=== PATIENT | female | born 2000 | race Caucasian/White ===

== ENCOUNTER 2021-02-09 07:56 | Inpatient (IN) ==
--- NOTE | 2021-02-03 13:04 | History & Physical Report ---
Date of Service February 03, 2021 Assessment & Plan (1) Encounter for supervision of normal intrauterine in primigravida, antepartum: Plan: Plan for repeat section, consent reviewed in detail. Questions answered. Allergic to iodine - will plan for chloraprep for abdomen. Will need alternative for restrepo catheter placement. History of Present Illness Chief Complaint: scheduled section Primary Care Provider: Lazaro Osorio 20yo with EDC 02/14/21 Plan for scheduled primary section due to breech presentation. complicated by: Flu shot 12/26/20 BREECH PRESENTATION C/S SCHEDULED FOR 02/[address] GLASS AND DR. VELAZQUEZ ASSIST Allergies Allergy/AdvReac Type Severity Reaction Status Date / Time iodine Allergy Hives Verified 02/03/21 12:26 Home Medications Medication Instructions Recorded Confirmed Type prenat.vits,mago,msb-uodx-qgtgg 1 tab PO DAILY 07/02/20 02/03/21 History ondansetron HCl 4 mg tablet 4 mg PO Q6H PRN #20 tab 08/06/20 02/03/21 Rx (Zofran) breast pump #1 ea 12/25/20 02/03/21 Rx breast pump #1 ea 12/26/20 02/03/21 Rx Patient History Medical History History of chicken pox Nexplanon removal Surgical History H/O LEEP H/O wisdom tooth extraction Family History Aunt Clotting disorder Father Pulmonary embolism Denies family history of Ovarian cancer Prostate cancer Breast cancer Colorectal cancer Social History Smoking Status: Never smoker marital status: marital status details: Jet Vallecillo (23) [phone] Current Living Situation: Spouse Current Living Situation Comment: Lives with spouse. 1 dog. current occupational status: employed current occupation: EMT Review of Systems All systems reviewed & are unremarkable except as noted in HPI & below Physical Exam Constitutional: WD/WN, vitals as above Respiratory: normal respiratory effort, lungs clear to auscultation no respiratory distress Cardiovascular: Rate/Rhythm: regular rate and regular rhythm Gastrointestinal (Abdomen): Inspection/Auscultation: abdomen normal to inspection Percussion/Palpation: abdomen soft; abdomen nontender Gravid. No s/s chorio or abruption. Skin: no rashes, warm and dry Psychiatric: A+Ox3, euthymic affect Coding Level of Care Code None Diagnoses Encounter for supervision of normal intrauterine in primigravida, antepartum Z34.00
--- NOTE | 2021-02-04 12:56 | Anesthesiology Consultation ---
Date of Service February 04, 2021 Assessment & Plan (1) Encounter for pre-operative examination: COVID screening: Per assessment on 02/04: Travel screen negative, no known COVID-19 positive contacts or current COVID-19 related symptoms. Surgeon arranging preop COVID testing. Awaiting results. Chart Review Chart Review: area operations manager initiated History Surgery Operation Date: 02/09/21 08:50 Proposed Procedures p Section ( Delivery of Baby Through Abdominal Incision) - Mirna Heredia DO Height/Weight Height: 5 ft 4 in Weight: 89.358 kg Allergies Allergy/AdvReac Type Severity Reaction Status Date / Time iodine Allergy Intermediate Hives Verified 02/04/21 11:00 Medications Home Medications Medication Instructions Recorded Confirmed Last Taken prenat.vits,mago,nek-curr-odijj 1 tab PO HS 07/02/20 02/04/21 Unknown ondansetron HCl 4 mg tablet 4 mg PO Q6H PRN #20 tab 08/06/20 02/04/21 Unknown (Zofran) breast pump #1 ea 12/25/20 02/03/21 Unknown breast pump #1 ea 12/26/20 02/03/21 Unknown Past Medical History Medical History (Updated 02/04/21 @ 12:55 by Cheryl Fox) History of COVID-19 Dx 06/2020 > symptoms at time of: headache, loss sense of smell > resolved Migraine PCOS (polycystic ovarian syndrome) Past Family History Family History Aunt Clotting disorder Father Pulmonary embolism Other No family history of adverse response to anesthesia Denies family history of Ovarian cancer Prostate cancer Breast cancer Colorectal cancer Past Surgical History Surgical History H/O LEEP H/O wisdom tooth extraction History of gynecological procedure removal of nexplanon Social History Smoking Status: Never smoker Do You Dip or Chew Tobacco: No Hx Alcohol Use: No Hx Substance Use: No substance use type: does not use Lab Results Anesthesia Preop Results Results Anesthesia Widget: Hgb 12.6 g/dL (12.0-16.0) 12/12/20 Hct 38.4 % (37-47) 12/12/20
[~2021-02-09 07:56] MED LIST: CITRIC ACID/SODIUM CITRATE 15 ML UDC PO SCH; LACTATED RINGER'S 1,000 ML IV SCH; ceFAZolin 2,000 MG in SYRINGE 0 ML IV SCH
[2021-02-09] MEDS ORDERED: LACTATED RINGER'S 1,000 ML IV SCH ×2 (08:00→12:51)
[2021-02-09 08:22] LABS: Basophils # (auto) 0.03 K/uL (0-0.2); Basophils % (auto) 0.3 %; Eosinophils # (auto) 0.09 K/uL (0-0.5); Eosinophils % (auto) 0.8 %; Hemoglobin 12.6 g/dL (12.0-16.0); Immature Granulocytes # (auto) 0.17 K/uL (0.00-0.02); Immature Granulocytes % (auto) 1.6 %; Lymphocytes # (auto) 2.01 K/uL (1.2-3.4); Lymphocytes % (auto) 18.5 %; Mean Corpuscular Hgb Conc 34.1 g/dL (32-36); Mean Corpuscular Volume 88.1 fL (80-100); Mean Platelet Volume 11.3 fL (7.4-10.4); Monocytes # (auto) 1.19 K/uL (0.11-0.59); Monocytes % (auto) 10.9 %; Neutrophils % (auto) 67.9 %; Platelet Count 159 K/uL (130-400); RDW Coefficient of Variation 13.1 % (11.5-14.5); RDW Standard Deviation 42.3 fL (36.4-46.3); White Blood Count 10.89 K/uL (4.8-10.8)
[2021-02-09] MEDS ORDERED: ONDANSETRON INJ 2 MG/ML 2 ML VIAL ONE (08:22)
[2021-02-09] MEDS ORDERED: MoRPHine SULFATE PF 1 MG/ML 10 ML AMP/VIAL ONE (08:22)
[2021-02-09] MEDS ORDERED: fentaNYL citrate 100 MCG/2 ML VIAL ONE (08:22)
[2021-02-09] MEDS ORDERED: OXYTOCIN 10 UNITS/ML VIAL ONE (08:22)
--- NOTE | 2021-02-09 10:09 | History & Physical Bridge Note ---
Date of Service February 09, 2021 History & Physical Bridge Note I have examined the patient, reviewed the History & Physical and in the interval since the performance of the History & Physical I have noted the following changes of clinical significance: no changes noted
[2021-02-09] MEDS ORDERED: NALBUPHINE HCL INJ 10 MG/ML AMP IV PRN (10:51)
[2021-02-09] MEDS ORDERED: ePHEDrine sulfate 50 MG/ML AMP IV PRN (10:51)
[2021-02-09] MEDS ORDERED: NALOXONE HCL 1 MG in SODIUM CHLORIDE 0.9% 1000ML 1,000 ML IV PRN (10:51)
[2021-02-09] MEDS ORDERED: MoRPHine SULFATE PF 1 MG/ML 10 ML AMP/VIAL INT SPINAL ONE (10:51)
[2021-02-09] MEDS ORDERED: NALOXONE HCL 0.08 MG in SYRINGE 1.8 ML IV PRN (10:51)
[2021-02-09] MEDS ORDERED: PROMETHAZINE HCL 25 MG in SODIUM CHLORIDE 0.9% 50 ML IV PRN (10:51)
[2021-02-09] MEDS ORDERED: diphenhydrAMINE 50 MG/ML VIAL IV PRN (10:51)
[2021-02-09] MEDS ORDERED: ONDANSETRON INJ 2 MG/ML 2 ML VIAL IV PRN (10:51)
[2021-02-09] MEDS ORDERED: NALOXONE HCL 0.4 MG/1 ML VIAL/CARP IV PRN (10:51)
[2021-02-09] MEDS ORDERED: HYDROmorphone INJ 0.5 MG/0.5 ML SYR IV PRN (10:51)
[2021-02-09] MEDS ORDERED: LACTATED RINGER'S 500 ML IV PRN (10:51)
[2021-02-09] MEDS ORDERED: SODIUM CHLORIDE 0.9% 1000ML 1,000 ML IV SCH (11:00)
[2021-02-09] MEDS ORDERED: NO NARCOTICS OR SEDATIVES SCH (11:00)
[2021-02-09] MEDS ORDERED: DC INTRASPINAL MORPHINE SCH (11:00)
--- NOTE | 2021-02-09 11:34 | Operative Report ---
PG Post Operative Report Pre & Post Diagnosis Operation Date: 02/09/21 09:50 Pre-Op Diagnosis: Breech presentation Post-Op Diagnosis: Same I identified the patient and participated in the time-out.: Yes Procedure Operation Date: 02/09/21 09:50 Actual Procedures p Primary Low Transverse Section in LD OR#3; primary lower uterine transverse section for the of a life male ; removal of Left para-tubal cyst - Mirna Heredia DO Surgeon Mirna Heredia DO Warehouse Delivery Manager Aryan Ellis MD Estimated Blood Loss 600 Findings Consistent with Post-Op Diagnosis Viable male , Apgars 8/9. Weight pending - please see nursery records. Normal appearing uterus, tubes, ovaries - except small left paratubal cyst. Specimens Placenta, cord blood, cord gas. Drains restrepo, clear yellow Anesthesia Type Spinal Complications none Disposition Accompanied Patient To Recovery: No Indications 20yo @ 39 2/7, primary low transverse section for breech presentation. Description of Procedure The patient was seen in her labor and delivery room, risks benefits and alternatives to surgery were reviewed. Informed consent obtained in office. Questions were answered. She was taken to the operating room, spinal anesthesia was administered. She was then prepared and draped in the usual sterile fashion in the supine position with a leftward tilt. Timeout was confirmed. A Pfannenstiel skin incision was made with a scalpel, and carried through to the underlying layer of fascia. Fascia was nicked at midline, and this incision was extended bilaterally. The superior aspect of the fascial incision was grasped with Mine clamps x2, elevated off the underlying rectus abdominis muscles, and dissected sharply and bluntly. In similar fashion, the inferior aspect of the fascial incision was dissected. The rectus abdominis muscles were , and the peritoneum was entered bluntly digitally. This was extended bilaterally. The bladder flap was taken down carefully using Metzenbaum scissors. Using a new scalpel, a low transverse uterine incision was created. Clear amniotic fluid noted. The was delivered from a lalita breech presentation. The buttocks delivered, followed by bilateral legs, swept medially. Torso delivered, bilateral arms swept medially for delivery, then head delivered easily. No nuchal cord. Spontaneous cry on the field. The cord was doubly clamped and cut, and the infant was handed off to the waiting wood preparation supervisor. A segment was retained for cord gases. Cord blood was obtained. The placenta was delivered spontaneously intact. The uterus was exteriorized, and cleared of all clots and debris. The hysterotomy incision was reapproximated using 0 Vicryl in a running locked stitch. A second layer of the same suture was used to imbricate the incision. Posterior uterus was evaluated and normal. There was a small simple-appearing left paratubal cyst, transected from mesosalpinx with bovie cautery, sent to path for evaluation. The uterus was returned to the abdomen, and gutters were cleared of clots and d ebris. Figure of eight sutures were used for bleeding spots on the hysterotomy incision, which obtained hemostasis. Excellent hemostasis was observed. The fascial incision was reapproximated using 0 Vicryl in a running stitch. The subcutaneous tissue was irrigated, and reapproximated using 2-0 plain gut in a running stitch. The skin was reapproximated using 4-0 Vicryl in a running subcuticular stitch. Steri-Strips and a bandage were applied. The patient tolerated the procedure well, and will be taken to the recovery area in stable and good condition. Sponge, needle, instrument counts correct x 2. I attest to the content of the Intraoperative Record and any orders documented therein. Any exceptions are noted below. OB Procedure Charges 69964
[2021-02-09 11:56] LABS: Base Excess Cord Arterial Bld 0.8 mEq/L (-9-1.8); CO2 Cord Arterial Blood 58 mmHg (39.1-73.5); HCO3 Cord Arterial Blood 28 mmol/L (19.7-28.5); PO2 Cord Arterial Blood 27 mmHg (4.1-31.7); pH Cord Arterial Blood 7.31 (7.1-7.38)
[2021-02-09 11:57] LABS: Oxygen Sat Cord Arterial Blood < 60.0 % (<60)
[2021-02-09 12:00] LABS: Base Excess Cord Venous Blood -0.9 mEq/L (-7.7-1.9); Cord Venous Blood HCO3 23 mmol/L (18.4-26.8); Cord Venous Blood PCO2 34 mmHg (30.4-57.2); Cord Venous Blood PO2 29 mmHg (14.1-43.3); Cord Venous Blood pH 7.44 (7.20-7.44); O2 Saturation Cord Venous Bld 71.2 % (<68)
--- NOTE | 2021-02-09 12:17 | Anesthesiology Progress Note ---
Date of Service February 09, 2021 Anesthesia Post Procedure Vital Signs Vital Signs: Temp Pulse Resp BP Pulse Ox 02/09/21 12:07 68 110/69 02/09/21 11:57 87 111/74 02/09/21 11:55 20 02/09/21 11:50 79 112/73 02/09/21 11:45 97.7 F 02/09/21 11:43 74 100 02/09/21 11:38 72 99 02/09/21 11:34 75 103/66 02/09/21 11:33 80 96 02/09/21 08:52 97.9 F 02/09/21 08:12 83 115/73 Transfer of Care Handoff Completed per policy Notes Mental Status: alert / awake / arousable and participated in evaluation Patient Amnestic to Procedure: Yes Nausea / Vomiting: adequately controlled Pain: adequately controlled Airway Patency, RR, SpO2: stable & adequate BP & HR: stable & adequate Hydration State: stable & adequate Neuraxial Anesthesia: was administered and sensory block is resolving Anesthetic Complications: no major complications apparent and Pt Satisfied with anesthetic care
[2021-02-09] MEDS ORDERED: BENZOCAINE 20% AER SPR 82.5 GM CAN EXT PRN (12:51)
[2021-02-09] MEDS ORDERED: MAGNESIUM HYDROXIDE SUSP 30 ML UDC PO PRN (12:51)
[2021-02-09] MEDS ORDERED: DIPHTHERIA/TETANUS/PERTUSSIS 0.5 ML SYR/VIAL IM ONE (12:51)
[2021-02-09] MEDS ORDERED: SENNA 8.6 MG TAB PO PRN (12:51)
[2021-02-09] MEDS ORDERED: SUPERCREAM 0.870% 15 GM JAR EXT PRN (12:51)
[2021-02-09] MEDS ORDERED: HYDROCORTISONE ACETATE 25 MG SUPP PR PRN (12:51)
[2021-02-09] MEDS: SIMETHICONE 80 MG CHEW PO SCH ×3 (14:55→20:02)
[2021-02-09] MEDS: OXYTOCIN 30 UNITS in LACTATED RINGER'S 1,000 ML IV SCH ×2 (15:04→23:25)
[2021-02-09] MEDS ORDERED: KETOROLAC 30 MG/ML VIAL IV PRN (17:46)
[2021-02-09] MEDS ORDERED: KETOROLAC 30 MG/ML VIAL ONE (17:54)
[2021-02-09] MEDS: DOCUSATE SODIUM 100 MG CAP PO SCH (20:02)
[2021-02-10] MEDS ORDERED: diphenhydrAMINE 50 MG/ML VIAL IV PRN (04:52)
[2021-02-10] MEDS ORDERED: PROMETHAZINE HCL 25 MG in SODIUM CHLORIDE 0.9% 50 ML IV PRN (04:52)
[2021-02-10] MEDS ORDERED: KETOROLAC 30 MG/ML VIAL IV PRN (04:52)
[2021-02-10] MEDS ORDERED: diphenhydrAMINE Capsule 25 MG CAP PO PRN (04:52)
[2021-02-10] MEDS ORDERED: ONDANSETRON INJ 2 MG/ML 2 ML VIAL IV PRN (04:52)
[2021-02-10] MEDS: oxyCODONE/ACETAMINOPHEN 5mg/325mg TAB PO PRN ×4 (05:02→21:01)
[2021-02-10] MEDS: IBUPROFEN 600 MG TAB PO PRN ×4 (05:02→21:02)
--- NOTE | 2021-02-10 06:10 | Obstetrical Progress Note ---
Date of Service <Dontae Mendoza DO - Last Filed: 02/10/21 06:55> February 10, 2021 Assessment & Plan <Dontae Mendoza DO - Last Filed: 02/10/21 06:55> (1) Encounter for care and examination after delivery: 20 yo post op day 1 from , doing well. -Continue routine post care. - vital signs reviewed and WNL. (Tmax 36.8) -Blood type A+, GBS -, Rubella Immune -Encourage ambulation, monitor and control pain with Motrin, tylenol PRN, resume regular diet, monitor lochia. -encourage breast feeding -hemoglobin 12.6 <Yesy Ellis MD, FACOG - Last Filed: 02/10/21 07:06> (1) Encounter for care and examination after delivery: Subjective <Dontae Mendoza DO - Last Filed: 02/10/21 06:55> Ambulation: ambulating normally Voiding: no voiding problems Passing Gas:: Yes Diet Tolerance:: regular diet Lochia:: Small Feeding Type:: breast feeding Current Pain Level(1-10): 0 Review of Systems Denies fever, chills, sweats Denies shortness of breath, difficulty breathing, chest pain, palpitations, chest pressure. Denies breast pain. Denies dysuria. Denies headache or changes in vision Physical Exam <Dontae Mendoza DO - Last Filed: 02/10/21 06:55> General: Alert, oriented. No acute distress. Cardiac: Regular rate and rhythm, no murmurs/rubs/gallops. Respiratory: Clear to auscultation bilaterally a/p, no wheezes/rales/rhonchi. No increased work of breathing. Symmetrical chest rise. No respiratory distress. Abdomen: Soft, nontender, nondistended. Bowel sounds present. Uterus: Uterine fundus firm, palpable 2 cm below umbilicus. Surgical scar clean and healing well. Lower Extremities: No lower extremity edema or swelling. No deep calf pain. Dada's negative bilaterally Results & Data ([facility]) <Dontae Mendoza DO - Last Filed: 02/10/21 06:55> Vital Signs (Past 12 Hours) Vital Signs Temp Pulse Resp BP Pulse Ox 02/10/21 04:50 36.7 C 83 18 100/63 94 02/10/21 04:45 18 94 02/10/21 04:00 18 95 02/10/21 03:00 18 94 02/10/21 02:00 18 94 02/10/21 01:00 18 95 02/10/21 00:10 16 94 02/09/21 23:25 36.7 C 76 18 104/65 94 02/09/21 23:00 18 94 02/09/21 22:00 18 95 02/09/21 21:00 18 96 02/09/21 20:00 36.8 C 92 H 18 102/63 95 02/09/21 18:56 20 97 <Yesy Ellis MD, FACOG - Last Filed: 02/10/21 07:06> Co-Signing Physician Notes Resident Physician Supervision Note: I was present with Dr. Mendoza during the history and exam. I discussed the case with the resident and agree with the findings and plan as documented in the note. Any exceptions or clarifications are listed here: doing well, lety po, +flatus, no pain issues. no cp/sob. ff 2 down nt, incision c/d/i with steris. ext nt calves. pod#1 s/p primary c/s. doing well routine care. hgb pending. Documented By: Yesy Ellis MD, FACOG Resident Activity Tracking <Dontae Mendoza DO - Last Filed: 02/10/21 06:55> Resident Involvement: Resident Care Provided Care Provided: OB Delivery
[2021-02-10 07:59] LABS: Basophils # (auto) 0.01 K/uL (0-0.2); Basophils % (auto) 0.1 %; Eosinophils # (auto) 0.05 K/uL (0-0.5); Eosinophils % (auto) 0.3 %; Hematocrit (blood only) 32.9 % (37-47); Hemoglobin 10.8 g/dL (12.0-16.0); Immature Granulocytes # (auto) 0.13 K/uL (0.00-0.02); Immature Granulocytes % (auto) 0.9 %; Lymphocytes % (auto) 18.9 %; Mean Corpuscular Hgb Conc 32.8 g/dL (32-36); Mean Corpuscular Volume 88.2 fL (80-100); Mean Platelet Volume 11.3 fL (7.4-10.4); Monocytes # (auto) 1.74 K/uL (0.11-0.59); Monocytes % (auto) 12.2 %; Neutrophils # (auto) 9.68 K/uL (1.4-6.5); Neutrophils % (auto) 67.6 %; Platelet Count 146 K/uL (130-400); RDW Coefficient of Variation 13.1 % (11.5-14.5); RDW Standard Deviation 42.2 fL (36.4-46.3); Red Blood Count 3.73 M/uL (4.2-5.4); White Blood Count 14.31 K/uL (4.8-10.8)
[2021-02-10] MEDS: FERROUS SULFATE 325 MG TAB PO SCH (08:28)
[2021-02-10] MEDS: SIMETHICONE 80 MG CHEW PO SCH ×4 (08:28→21:03)
[2021-02-10] MEDS: PRENATAL VITAMIN 1 TAB PO SCH (08:28)
[2021-02-10] MEDS: DOCUSATE SODIUM 100 MG CAP PO SCH ×2 (08:28→21:02)
[2021-02-10] MEDS ORDERED: bisacodyL 5 MG TABEC PO SCH (20:00)
[2021-02-11] MEDS: oxyCODONE/ACETAMINOPHEN 5mg/325mg TAB PO PRN ×2 (05:33→11:10)
[2021-02-11] MEDS: IBUPROFEN 600 MG TAB PO PRN ×2 (05:34→11:10)
[2021-02-11 06:02] LABS: Hematocrit (blood only) 33.2 % (37-47); Hemoglobin 10.6 g/dL (12.0-16.0)
--- NOTE | 2021-02-11 06:08 | Obstetrical Progress Note ---
Date of Service <Dontae Mendoza DO - Last Filed: 02/11/21 07:34> February 11, 2021 Assessment & Plan <Dontae Mendoza DO - Last Filed: 02/11/21 07:34> (1) Encounter for care and examination after delivery: 20 yo post op day 2 from , doing well. - vital signs reviewed and WNL. (Tmax 36.8) -Blood type A+, GBS -, Rubella Immune -Encourage ambulation. Recommended control pain with Motrin, tylenol PRN. -encourage breast feeding -hemoglobin 10.6 -Discussed discharge with the patient since patient is wanting to go home today. Patient will follow up with OB outpatient in 6 weeks. <Jordana lForian MD, FACOG - Last Filed: 02/11/21 07:37> (1) Encounter for care and examination after delivery: Subjective <Dontae Mendoza DO - Last Filed: 02/11/21 07:34> Ambulation: ambulating normally Voiding: no voiding problems Passing Gas:: Yes Diet Tolerance:: regular diet Lochia:: Small Feeding Type:: breast feeding Current Pain Level(1-10): 0 Review of Systems Denies fever, chills, sweats Denies shortness of breath, difficulty breathing, chest pain, palpitations, chest pressure. Denies breast pain. Denies dysuria. Denies headache or changes in vision Physical Exam <Dontae Mendoza DO - Last Filed: 02/11/21 07:34> General: Alert, oriented. No acute distress. Cardiac: Regular rate and rhythm, no murmurs/rubs/gallops. Respiratory: Clear to auscultation bilaterally a/p, no wheezes/rales/rhonchi. No increased work of breathing. Symmetrical chest rise. No respiratory distress. Abdomen: Soft, nontender, nondistended. Bowel sounds present. Uterus: Uterine fundus firm, palpable 2 cm below umbilicus. Surgical scar clean and healing well. Lower Extremities: No lower extremity edema or swelling. No deep calf pain. Dada's negative bilaterally Results & Data ([facility]) <Dontae Mendoza DO - Last Filed: 02/11/21 07:34> Vital Signs (Past 12 Hours) Vital Signs Temp Pulse Resp BP 02/11/21 00:40 36.8 C 89 18 99/64 L 02/10/21 19:30 36.5 C 93 H 18 99/49 L <Jordana Florian MD, FACOG - Last Filed: 02/11/21 07:37> Co-Signing Physician Notes Resident Physician Supervision Note: I interviewed and examined the patient. Discussed with Dr. Mendoza and agree with findings and plan as documented in the note. Any exceptions or clarifications are listed here: Doing well. Plan d/c. Instructions given. Documented By: Jordana Florian MD, FACOG Resident Activity Tracking <Dontae Mendoza DO - Last Filed: 02/11/21 07:34> Resident Involvement: Resident Care Provided Care Provided: OB Delivery
[2021-02-11] MEDS: FERROUS SULFATE 325 MG TAB PO SCH (08:43)
[2021-02-11] MEDS: SIMETHICONE 80 MG CHEW PO SCH (08:43)
[2021-02-11] MEDS: DOCUSATE SODIUM 100 MG CAP PO SCH (08:43)
[2021-02-11] MEDS: PRENATAL VITAMIN 1 TAB PO SCH (08:43)
[2021-02-11] MEDS ORDERED: bisacodyL 10 MG SUPP PR PRN (11:35)
--- NOTE | 2021-02-18 08:07 | Discharge Summary ---
Date of Service February 18, 2021 Admission HPI Per Admitting Provider 20yo with EDC 02/14/21 Plan for scheduled primary section due to breech presentation. complicated by: Flu shot 12/26/20 BREECH PRESENTATION C/S SCHEDULED FOR 02/[address] HEREDIA AND DR. VELAZQUEZ ASSIST Discharge Data Consultations 02/09/21 08:00 Consult Anesthesiology Stat Procedures Performed Operation Date: 02/09/21 09:50 Actual Procedures p Section in LD OR#3; primary lower uterine transverse section for the of a life male infant; removal of Left para-tubal cyst - Mirna Heredia, Hospital Course (1) Encounter for supervision of normal intrauterine in primigravida, antepartum: Patient admitted for scheduled section, routine recovery, discharged home POD#2. Followup in office. Please see chart for further details. Coding Level of Care Code None Diagnoses Encounter for supervision of normal intrauterine in primigravida, antepartum Z34.00
== END 2021-02-11 12:13 | disposition home or self-care (01) | DRG 785 ==
LOC: 4S1 07:56 → EDSTATUS 09:50 → 4S2 14:47
DX: Z3A.39 39 weeks gestation of pregnancy; Z37.0 Single live birth; O32.1XX0 Maternal care for breech presentation, not applicable or unspecified; N83.8 Other noninflammatory disorders of ovary, fallopian tube and broad ligament; O26.893 Other specified pregnancy related conditions, third trimester; Z82.49 Family history of ischemic heart disease and other diseases of the circulatory system

== ENCOUNTER 2022-07-12 05:31 | Inpatient (IN) ==
--- NOTE | 2022-07-01 11:33 | Anesthesiology Consultation ---
Date of Service July 01, 2022 Assessment & Plan (1) Encounter for pre-operative examination: Chart Review Chart Review: manufacturing finance manager initiated -COVID screening: Per PAT nursing assessment on 07/01/22. No known COVID-19 positive contacts or current COVID-19 related symptoms. Travel screen negative. Patient is NOT vaccinated for Covid. At surgeon discretion if preop Covid testing being done. 02/09/21= Done under SAB at L3/4 with 1 attempt. History Surgery Operation Date: 07/12/22 07:30 Proposed Procedures p Section in LD (Delivery of Baby Through Abdominal Incision) - Chase Zepeda MD, FACOG Height/Weight Height: 5 ft 4 in Weight: 92.533 kg Allergies Allergy/AdvReac Type Severity Reaction Status Date / Time iodine Allergy Unknown Hives - PT Verified 07/01/22 10:57 NOT SURE IF TOPICAL RXN OR FROM INJECTION Medications Home Medications Medication Instructions Recorded Confirmed Last Taken jjwxdymd-fqu-Ml-FA 1 mg 1 tab PO QAM 07/01/22 07/01/22 Unknown tablet Past Medical History Medical History History of COVID-19 Dx 06/2020 > symptoms at time of: headache, loss sense of smell > resolved Migraines HX/RARE ON OCC PCOS (polycystic ovarian syndrome) Post-operative nausea and vomiting Past Family History Family History Aunt Clotting disorder Father Pulmonary embolism Other No family history of adverse response to anesthesia Denies family history of Ovarian cancer Prostate cancer Breast cancer Colorectal cancer Past Surgical History Surgical History H/O LEEP H/O wisdom tooth extraction History of History of gynecological procedure removal of nexplanon Social History Smoking Status: Never smoker Do You Dip or Chew Tobacco: No Hx Alcohol Use: No Hx Substance Use: No substance use type: does not use Lab Results Anesthesia Preop Results Results Anesthesia Widget: Urine Color Yellow 05/23/22 Urine Appearance Clear (Clear) 05/23/22 Urine pH 6.5 (4.5-7.5) 05/23/22 Urine Specific [place] 1.013 (1.000-1.030) 05/23/22 Urine Protein Negative (Negative) 05/23/22 Urine Glucose (UA) Negative (Negative) 05/23/22 Urine Ketones 1+ (Negative) H 05/23/22 Urine Blood Negative (Negative) 05/23/22 Urine Nitrite Negative (Negative) 05/23/22 Urine Bilirubin Negative (Negative) 05/23/22 Urine Urobilinogen Negative (Negative) 05/23/22 Urine Leukocyte Esterase 1+ (Negative) H 05/23/22 Urine WBC (Auto) 5-10 /hpf (0-5) H 05/23/22 Urine RBC (Auto) 0-4 /hpf (0-4) 05/23/22 Urine Hyaline Casts (Auto) 1-5 /lpf (0-5) 05/23/22 Urine Epithelial Cells (Auto) >30 /lpf (0-5) H 05/23/22 Urine Bacteria (Auto) 1+ (Negative) H 05/23/22 Testing Laboratory Results 05/23/22= URINE CULTURE: More than 3 types of organisms present, all moderate counts mixed probable skin jaiden
--- NOTE | 2022-07-11 16:07 | History & Physical Report ---
Date of Service July 11, 2022 Assessment & Plan (1) Encounter for pre-operative examination: Plan: Repeat section. The patient was counseled to the nature of the procedure including alternatives such as labor. Risks were discussed including bleeding infection injury to bowel bladder ureter vessels and even baby. The risks of internal organ injury were discussed as being higher with prior sections. Deep Vein Thrombosis, pulmonary embolus and breakdown of the incision discussed. Deep vein thrombosis pulmonary embolus hernia and failure of the incision to heal were discussed Patient verbalized understanding of this and was given ample time to ask questions History of Present Illness Primary Care Provider: Devendra Garcia Visit [facility] Calculator Estimated Delivery Date Method Current WG Current Estimate 07/19/22 Ultrasound #1 38w 0d Other Estimates 06/12/22 LMP (Certain) 43w 2d LMP: 09/05/21 : 2 Full term: 1 Premature: 0 Total Number of Induced Abortions: 0 Total Number of Spontaneous Abortions: 0 Ectopics: 0 Multiple births: 0 Number of Living Children: 1 and Delivery Plans Hx of 01/2021 - Patient desires repeat this - close interval C/S with Katelyn on 07/12/22 Hx of LSIL and LEEP in 2019 Unvaccinated (Covid) Allergies Allergy/AdvReac Type Severity Reaction Status Date / Time iodine Allergy Unknown Hives - PT Verified 07/05/22 11:29 NOT SURE IF TOPICAL RXN OR FROM INJECTION Home Medications Medication Instructions Recorded Confirmed Type euoeucfc-wqp-Dl-FA 1 mg 1 tab PO QAM 07/01/22 07/05/22 History tablet Patient History Medical History History of COVID-19 Dx 06/2020 > symptoms at time of: headache, loss sense of smell > resolved Migraines HX/RARE ON OCC PCOS (polycystic ovarian syndrome) Post-operative nausea and vomiting Surgical History H/O LEEP H/O wisdom tooth extraction History of History of gynecological procedure removal of nexplanon Family History Aunt Clotting disorder Father Pulmonary embolism Other No family history of adverse response to anesthesia Denies family history of Ovarian cancer Prostate cancer Breast cancer Colorectal cancer Social History (Updated 11/09/21 @ 07:42 by Yesi Cotter RN) Smoking Status: Never smoker Second Hand Exposure: No; Hx Alcohol Use: No Hx Substance Use: No Preferred Language: Northern Irish Communication Ability: Effective Visual Impairment: No Limitations Hearing Ability: Normal Small Products I Assembler Required: No Beliefs That Will Affect Care: None marital status: marital status details: Jet Vallecillo (25) [phone] Current Living Situation: Spouse and Family Current Living Situation Comment: Lives with spouse and son. 1 dog. 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
[2022-07-12] MEDS ORDERED: CITRIC ACID/SODIUM CITRATE 15 ML UDC PO SCH (06:00)
[2022-07-12] MEDS ORDERED: ceFAZolin 2,000 MG in SYRINGE 0 ML IV SCH (06:00)
[2022-07-12] MEDS ORDERED: ceFAZolin 2000MG 2,000 MG/15 ML SYR IV SCH (06:00)
[2022-07-12] MEDS ORDERED: LACTATED RINGER'S 1,000 ML IV SCH ×4 (06:00→08:51)
[2022-07-12 07:00] LABS: Basophils # (auto) 0.06 K/uL (0-0.2); Basophils % (auto) 0.5 %; Eosinophils # (auto) 0.08 K/uL (0-0.50); Eosinophils % (auto) 0.7 %; Hematocrit (blood only) 34.1 % (37.0-47.0); Immature Granulocytes # (auto) 0.24 K/uL (0.01-0.20); Lymphocytes # (auto) 2.42 K/uL (1.2-3.4); Mean Corpuscular Hemoglobin 25.8 pg (25.0-34.0); Mean Corpuscular Hgb Conc 32.3 g/dL (32.0-36.0); Mean Platelet Volume 11.4 fL (9.4-12.4); Monocytes # (auto) 1.27 K/uL (0.11-0.59); Monocytes % (auto) 10.5 %; Neutrophils # (auto) 8.04 K/uL (1.40-6.50); Neutrophils % (auto) 66.3 %; Platelet Count 183 K/uL (130-400); RDW Standard Deviation 40.9 fL (36.4-46.3); Red Blood Count 4.26 M/uL (4.20-5.40); White Blood Count 12.11 K/ul (4.8-10.8)
--- NOTE | 2022-07-12 07:06 | History & Physical Bridge Note ---
Date of Service July 12, 2022 History & Physical Bridge Note I have examined the patient, reviewed the History & Physical and in the interval since the performance of the History & Physical I have noted the following changes of clinical significance: no changes noted
[2022-07-12] MEDS ORDERED: MoRPHine SULFATE PF 1 MG/ML 10 ML AMP/VIAL ONE (07:24)
[2022-07-12] MEDS ORDERED: KETOROLAC 30 MG/ML VIAL ONE (08:09)
[2022-07-12] MEDS ORDERED: OXYTOCIN 10 UNITS/ML 10ML VIAL ONE (08:09)
[2022-07-12] MEDS ORDERED: ONDANSETRON INJ 2 MG/ML 2 ML VIAL ONE (08:09)
[2022-07-12] MEDS ORDERED: BENZOCAINE 20% AER SPR 82.5 GM CAN EXT PRN ×2 (08:18→08:51)
[2022-07-12] MEDS ORDERED: HYDROCORTISONE ACETATE 25 MG SUPP PR PRN ×2 (08:18→08:51)
[2022-07-12] MEDS ORDERED: SENNA 8.6 MG TAB PO PRN ×2 (08:18→08:51)
[2022-07-12] MEDS ORDERED: DIPHTHERIA/TETANUS/PERTUSSIS 0.5mL SYR/VIAL (Age 7+yrs) IM ONE (08:18)
[2022-07-12] MEDS ORDERED: MAGNESIUM HYDROXIDE SUSP 30 ML UDC PO PRN ×2 (08:18→08:51)
--- NOTE | 2022-07-12 08:25 | Operative Report ---
PG Post Operative Report Pre & Post Diagnosis Operation Date: 07/12/22 07:30 Pre-Op Diagnosis: 1. Previous c/section desires repeat Post-Op Diagnosis: Same I identified the patient and participated in the time-out.: Yes Procedure Operation Date: 07/12/22 07:30 Actual Procedures p Section with the of a live female child at 0750. - Chase Zepeda MD, FACOG Surgeon Chase Zepeda MD, FACOG Manager Activities Dr. Heredia Estimated Blood Loss 400 Findings Consistent with Post-Op Diagnosis Specimens Cord blood Description of Procedure Regional anesthetic had been given by anesthesia patient was prepped and draped with a leftward tilt preoperative antibiotics had been given in appropriate timing by anesthesiology. Once the prep was allowed to fully dry timeout was performed. Pickups with teeth were used to test the incision area was found to be adequate for incision as the patient did not feel sharp pain. Scalpel was used to make a Pfannenstiel incision on the lower abdomen. We then cut through the subcutaneous fat down to the level of the anterior rectus sheath fascia this was cut in the midline and then extended laterally with the curved Romo scissors. At this stage we then placed 2 Mine clamps on the anterior aspect of the fascia. Using the curved Romo's we are able to dissect the fascia superiorly away from the rectus muscles. Care was taken to maintain hemostasis. Mine clamps were then placed to the inferior aspect of the anterior sheath of the fascia. Fascia was then dissected away from the rectus muscles inferiorly towards the pubic bone. A Mine was then placed in the midline both inferiorly and superiorly. This was to allow exposure by retraction rectus muscles were in the midline with were then able to cut through the peritoneum and then enter the peritoneal cavity. Opening was enlarged to allow exposure of the peritoneal cavity both superiorly and inferiorly. Once adequate space was obtained a bladder retractor was placed to expose the lower segment Metzenbaums were used to dissect the bladder flap inferiorly away from the uterus. This was done sharply bladder retractor was then repositioned to expose the lower segment of the uterus Fresh scalpel was used to make a low transverse incision on the uterus. Uterus was then entered bluntly with the operators finger, membranes ruptured and the opening was enlarged using the operators fingers bluntly pulling superiorly and inferiorly to allow exposure. Baby was delivered by first flexion of the head elevation of the head out of the pelvis and then pressure by the patient assistant on the maternal abdomen. Baby's head was then delivered mouth and then nares were suctioned and then using gentle traction the baby was fully delivered. Live vigorous infant. Fluid was clear cord clamped and cut cord gases obtained cord blood obtained baby handed to pediatrics. Placenta removed was removed with traction we ensure the entire placenta was removed with a moist lap sponge into the uterus Uterus was then exteriorized. IV Pitocin had been started by anesthesia tone improved there were no extensions the uterus was then closed using 0 Monocryl in a 2 layer closure the first layer closed in a running locked fashion from left to right and then a second closure from left to right in a running nonlocked fashion. At this stage hemostasis was excellent. Uterus was placed back in the peritoneal cavity with suction irrigation out and inspection of the uterus at this stage revealed excellent hemostasis Retractors were removed urine color was clear at this stage of the case we inspected the rectus muscles they were hemostatic fascia was closed with 0 Vicryl subcutaneous fat was irrigated and closed with 3-0 Vicryl skin closed with 4-0 subcuticular Monocryl Note the adnexa were both normal as was the uterus shape and contour I attest to the content of the Intraoperative Record and any orders documented therein. Any exceptions are noted below. OB Procedure Charges 71547
[2022-07-12] MEDS ORDERED: MoRPHine SULFATE PF 1 MG/ML 10 ML AMP/VIAL INT SPINAL ONE (08:28)
[2022-07-12] MEDS ORDERED: ePHEDrine sulfate 50 MG/ML AMP IV PRN (08:28)
[2022-07-12] MEDS ORDERED: PROMETHAZINE HCL 6.25 MG in SODIUM CHLORIDE 0.9% 50 ML IV PRN (08:28)
[2022-07-12] MEDS ORDERED: NALBUPHINE HCL INJ 10 MG/ML AMP IV PRN (08:28)
[2022-07-12] MEDS ORDERED: MoRPHine SULFATE 2 MG/ML CARP IV PRN (08:28)
[2022-07-12] MEDS ORDERED: NALOXONE HCL 0.4 MG/1 ML VIAL/CARP IV PRN (08:28)
[2022-07-12] MEDS ORDERED: NALOXONE HCL 0.08 MG in SYRINGE 1.8 ML IV PRN (08:28)
[2022-07-12] MEDS ORDERED: NALOXONE HCL 1 MG in SODIUM CHLORIDE 0.9% 1000ML 1,000 ML IV PRN (08:28)
[2022-07-12] MEDS ORDERED: LACTATED RINGER'S 500 ML IV PRN (08:28)
[2022-07-12] MEDS ORDERED: KETOROLAC 30 MG/ML VIAL IV PRN (08:28)
[2022-07-12] MEDS ORDERED: HYDROmorphone INJ 0.5 MG/0.5 ML SYR IV PRN (08:28)
[2022-07-12] MEDS ORDERED: ONDANSETRON INJ 2 MG/ML 2 ML VIAL IV PRN (08:28)
[2022-07-12] MEDS ORDERED: MEPERIDINE HCL 25 MG/ML CARP/VIAL IV PRN (08:28)
[2022-07-12] MEDS ORDERED: diphenhydrAMINE 50 MG/ML VIAL IV PRN (08:28)
[2022-07-12] MEDS ORDERED: DC INTRASPINAL MORPHINE SCH (08:30)
[2022-07-12] MEDS ORDERED: OXYTOCIN 20 UNITS in LACTATED RINGER'S 1,000 ML IV SCH (08:30)
[2022-07-12] MEDS ORDERED: NO NARCOTICS OR SEDATIVES SCH (08:30)
[2022-07-12] MEDS ORDERED: SODIUM CHLORIDE 0.9% 1000ML 1,000 ML IV SCH (08:30)
--- NOTE | 2022-07-12 08:43 | Anesthesiology Progress Note ---
Date of Service July 12, 2022 Anesthesia Post Procedure Vital Signs Vital Signs: Temp Pulse Resp BP Pulse Ox 07/12/22 07:02 36.9 C 20 07/12/22 05:49 36.5 C 20 07/12/22 08:38 74 100 07/12/22 08:36 82 79 L 07/12/22 08:34 74 104/56 L 07/12/22 08:33 65 100 07/12/22 08:28 75 100 07/12/22 08:25 71 110/55 L 07/12/22 08:23 80 100 07/12/22 06:57 85 108/66 07/12/22 05:47 20 07/12/22 05:47 36.9 C 20 07/12/22 05:46 79 115/67 Transfer of Care Handoff Completed per policy Notes Mental Status: alert / awake / arousable Patient Amnestic to Procedure: Yes Nausea / Vomiting: adequately controlled Pain: adequately controlled Airway Patency, RR, SpO2: stable & adequate BP & HR: stable & adequate Hydration State: stable & adequate Neuraxial Anesthesia: was administered and sensory block is resolving Anesthetic Complications: no major complications apparent and Pt Satisfied with anesthetic care
[2022-07-12] MEDS ORDERED: oxyCODONE/ACETAMINOPHEN 5mg/325mg TAB PO PRN (08:51)
[2022-07-12] MEDS ORDERED: IBUPROFEN 600 MG TAB PO PRN (08:51)
[2022-07-12] MEDS: OXYTOCIN 30 UNITS in LACTATED RINGER'S 1,000 ML IV SCH ×2 (11:15→19:51)
[2022-07-12] MEDS ORDERED: SIMETHICONE 80 MG CHEW PO SCH (13:00)
[2022-07-12] MEDS: SIMETHICONE 80 MG CHEW PO SCH ×3 (15:41→22:13)
[2022-07-12] MEDS ORDERED: DOCUSATE SODIUM 100 MG CAP PO SCH (21:00)
[2022-07-12] MEDS: DOCUSATE SODIUM 100 MG CAP PO SCH (22:13)
[2022-07-13] MEDS ORDERED: diphenhydrAMINE Capsule 25 MG CAP PO PRN ×2 (02:28)
[2022-07-13] MEDS ORDERED: KETOROLAC 30 MG/ML VIAL IV PRN ×2 (02:28)
[2022-07-13] MEDS ORDERED: diphenhydrAMINE 50 MG/ML VIAL IV PRN ×2 (02:28)
[2022-07-13] MEDS ORDERED: ONDANSETRON INJ 2 MG/ML 2 ML VIAL IV PRN ×2 (02:28)
[2022-07-13] MEDS ORDERED: PROMETHAZINE HCL 25 MG in SODIUM CHLORIDE 0.9% 50 ML IV PRN (02:28)
[2022-07-13 07:22] LABS: Basophils # (auto) 0.04 K/uL (0-0.2); Basophils % (auto) 0.3 %; Eosinophils % (auto) 0.8 %; Hematocrit (blood only) 29.7 % (37.0-47.0); Hemoglobin 9.5 g/dl (12.0-16.0); Immature Granulocytes # (auto) 0.12 K/uL (0.01-0.20); Lymphocytes # (auto) 1.98 K/uL (1.2-3.4); Lymphocytes % (auto) 16.3 %; Mean Corpuscular Volume 81.1 fL (80.0-100.0); Mean Platelet Volume 11.5 fL (9.4-12.4); Monocytes # (auto) 1.28 K/uL (0.11-0.59); Monocytes % (auto) 10.6 %; Neutrophils # (auto) 8.61 K/uL (1.40-6.50); Platelet Count 144 K/uL (130-400); RDW Coefficient of Variation 14.1 % (11.5-14.5); RDW Standard Deviation 41.7 fL (36.4-46.3); Red Blood Count 3.66 M/uL (4.20-5.40); White Blood Count 12.13 K/ul (4.8-10.8)
--- NOTE | 2022-07-13 07:28 | Obstetrical Progress Note ---
Date of Service July 13, 2022 Assessment & Plan (1) Encounter for pre-operative examination: (2) Encounter for supervision of normal in multigravida: Plan Mayela is a 21 y/o female who is POD #1 following repeat delivery at 39 weeks. -Meeting all milestones -Vital signs reviewed and WNL, Hemoglobin stable -A+/GBS negative/Rubella immune -Follow up in 6 weeks for appointment -Continue routine care Admission and Anticipated Discharge Date Admission Date: July 12, 2022 Supervising Physician Co-Signing Physician Notes Patient seen and evaluated with resident and agree plan. Routine care. Subjective Mayela is a 21 y/o female who is POD #1 following repeat delivery at 39 weeks. She reports feeling well overall this morning. Notes abdominal cramping but pain well managed on analgesics. Voiding without issue since restrepo catheter removed this morning. Tolerating meals overnight and able to ambulate some. Endorses passing gas. Has some persistent lochia with some improvement this morning. Currently breast feeding. Review of Systems Constitutional: no fever, no chills and no sweats Respiratory: no cough, no dyspnea and no wheezing Cardiovascular: no chest pain, no palpitations and no calf pain Genitourinary: no dysuria Neurologic: no headache(s) Physical Exam Constitutional: WD/WN, vitals as above no acute distress Respiratory: no respiratory distress Auscultation: lungs clear to auscultation bilaterally; no rales, no rhonchi and no wheezes Cardiovascular: RRR, no murmur, no edema Extremities: no calf tenderness and no edema Negative Dada's sign bilaterally. Gastrointestinal (Abdomen): Inspection/Auscultation: normal bowel sounds Genitourinary: Uterine fundus firm, palpable below the umbilicus. Surgical incision covered with bandage, no visible bleeding or discharge. Results & Data Vital Signs (Past 12 Hours) Vital Signs Temp Pulse Pulse Resp BP Pulse Ox O2 Del Method 07/13/22 03:45 37.0 C 81 18 106/69 Room Air 07/13/22 02:04 18 95 07/13/22 01:38 18 96 07/13/22 00:55 16 97 07/12/22 23:15 37.0 C 81 16 99/63 L 97 Room Air 04/17/23 22:00 16 97 07/12/22 20:00 36.7 C 79 16 102/75 97 Room Air 07/12/22 20:59 16 96 07/12/22 20:00 18 97 Resident Activity Tracking Resident Involvement: Resident Care Provided Care Provided: OB Delivery
[2022-07-13] MEDS ORDERED: FERROUS SULFATE 325 MG TAB PO SCH (08:00)
[2022-07-13] MEDS ORDERED: PRENATAL VITAMIN 1 TAB PO SCH (08:00)
[2022-07-13] MEDS: PRENATAL VITAMIN 1 TAB PO SCH (08:57)
[2022-07-13] MEDS: SIMETHICONE 80 MG CHEW PO SCH ×4 (08:57→21:00)
[2022-07-13] MEDS: DOCUSATE SODIUM 100 MG CAP PO SCH ×2 (08:57→21:00)
[2022-07-13] MEDS: FERROUS SULFATE 325 MG TAB PO SCH (08:57)
[2022-07-13] MEDS: IBUPROFEN 600 MG TAB PO PRN ×3 (08:57→21:00)
[2022-07-13] MEDS: oxyCODONE/ACETAMINOPHEN 5mg/325mg TAB PO PRN ×3 (08:58→21:00)
[2022-07-13] MEDS ORDERED: bisacodyL 5 MG TABEC PO SCH ×2 (20:00)
[2022-07-14] MEDS: oxyCODONE/ACETAMINOPHEN 5mg/325mg TAB PO PRN (04:53)
[2022-07-14] MEDS: IBUPROFEN 600 MG TAB PO PRN (04:54)
[2022-07-14 07:13] LABS: Hematocrit (blood only) 29.9 % (37.0-47.0); Hemoglobin 9.5 g/dl (12.0-16.0)
--- NOTE | 2022-07-14 07:22 | Obstetrical Progress Note ---
Date of Service July 14, 2022 Assessment & Plan (1) care following delivery: Plan stable, doing well. hgb stable. desires dc home, instructions reviewed, f/u 6 wk pp check. bottle/breast/rh pos/ri. checked on papdmp and no issues. script for pain meds sent. Day #:: 2 Subjective Ambulation: ambulating normally Voiding: no voiding problems Passing Gas:: Yes Diet Tolerance:: regular diet Lochia:: Small Feeding Type:: breast feeding (pumping and bottle feeding. ) good pain control with meds. wants to go home. no cp/sob/n/v. Constitutional: + as per Subjective / HPI Physical Exam Constitutional WD/WN, vitals as above Respiratory normal respiratory effort, lungs clear to auscultation Cardiovascular Rate/Rhythm: regular rate and regular rhythm Gastrointestinal (Abdomen) Inspection/Auscultation: abdomen normal to inspection and + abdominal surgical incision (c/d/i with steris, dried blood. ) Percussion/Palpation: abdomen soft Fundus firm 2cm down Musculoskeletal nt calves no edema Neurologic grossly normal Psychiatric A+Ox3, euthymic affect Results & Data Vital Signs (Past 12 Hours) Vital Signs Temp Pulse Resp BP Pulse Ox O2 Del Method 07/14/22 00:45 97.7 F 86 18 125/85 98 Room Air
[2022-07-14] MEDS ORDERED: bisacodyL 10 MG SUPP PR PRN ×2 (08:18)
[2022-07-14] MEDS: FERROUS SULFATE 325 MG TAB PO SCH (08:19)
[2022-07-14] MEDS: SIMETHICONE 80 MG CHEW PO SCH (08:19)
[2022-07-14] MEDS: DOCUSATE SODIUM 100 MG CAP PO SCH (08:19)
[2022-07-14] MEDS: PRENATAL VITAMIN 1 TAB PO SCH (08:19)
== END 2022-07-14 10:40 | disposition home or self-care (01) | DRG 788 ==
LOC: 4S1 05:31 → EDSTATUS 07:30 → 4E2 12:20
DX: O34.211 Maternal care for low transverse scar from previous cesarean delivery; Z3A.39 39 weeks gestation of pregnancy; Z37.0 Single live birth